=== PATIENT | female | born 1960 | race Caucasian/White ===

== ENCOUNTER 2019-08-06 05:13 | Emergency (ER) | payer OTHER ==
[~2019-08-06] VITALS: Ht 157.5 cm; Wt 79.4 kg
[2019-08-06 05:15] VITALS: BP 153/89
--- NOTE | 2019-08-06 05:18 | NUR ---
TO LOBBY A/W BED AMBULATORY
--- NOTE | 2019-08-06 06:11 | NUR ---
PT AMBULATED TO BED 9
--- NOTE | 2019-08-06 06:20 | NUR ---
PT C/O COUGH AND CONJESTION WITH WHITE FLEGM X 7 DAYS. PT STATES SOME CHEST AND BACK PAIN WELL. PT ALSO C/O LLQ PAIN. PT STATES N/V DENIES DIARRHEA. PT APPEARS TO BE IN NO DISTRESS. LUNGS CLEAR. DR. WILL HERNANDEZ OF , DOES NOT WANT EKG AT THIS TIME. PT NSR AT 97. PT O2 SAT 98%. SKIN IS PINK/WARM/DRY; AAOX4 WITH EVEN AND STEADY GAIT; LUNGS CLEAR BL; HR EVEN AND REGULAR; PT DENIES ANY FEVER, SOB AT THIS TIME; PATIENT STATES PAIN OF 7/10 AT THIS TIME; VSS; PATIENT POSITIONED FOR COMFORT; HOB ELEVATED; BEDRAILS UP X1; BED DOWN. PT DIALYSIS PT. GOES TO [facility]. LAST DIALYSIS WEDNESDAY.
--- NOTE | 2019-08-06 07:13 | NUR ---
RECEIVED REPORT FROM CO[facility] REYES FOR CONTINUITY OF CARE
[2019-08-06 07:35] VITALS: BP 153/90
--- NOTE | 2019-08-06 07:35 | NUR ---
Patient discharged with v/s stable. Written and verbal after care instructions given and explained. Patient alert, oriented and verbalized understanding of instructions. Ambulatory with steady gait. All questions addressed prior to discharge. ID band removed. Patient advised to follow up with PMD. Rx of LEVAQUINTESSALON given. Patient educated on indication of medication including possible reaction and side effects. Opportunity to ask questions provided and answered. D/C BY DR SOLIS
== END 2019-08-06 07:35 | disposition home or self-care (01) ==
LOC: MED 05:13
DX: J20.9 Acute bronchitis, unspecified (principal); Z98.890 Other specified postprocedural states
CPT/HCPCS: 71045; 99283

== ENCOUNTER 2021-02-12 06:45 | Day surgery (SDC) | payer OTHER ==
[~2021-02-12] VITALS: Ht 165.1 cm; Wt 74.8 kg
[2021-02-12] MEDS ORDERED: MIDAZOLAM 5 MG/5 ML VIAL ONE (07:51)
[2021-02-12] MEDS ORDERED: diphenhydrAMINE 50 MG/ML VIAL ONE (07:51)
[2021-02-12] MEDS ORDERED: fentaNYL citrate 0.05 MG/ML VIAL ONE (07:51)
[2021-02-12] MEDS ORDERED: LIDOCAINE 2% 100 MG/5 ML UJET TP ONE ×2 (07:51→08:10)
[2021-02-12] MEDS ORDERED: MIDAZOLAM 2 MG/2 ML VIAL IVP ONE ×2 (08:10→08:30)
[2021-02-12] MEDS ORDERED: fentaNYL citrate 0.05 MG/ML VIAL IVP ONE ×2 (08:10→08:30)
== END 2021-02-12 09:25 | disposition home or self-care (01) ==
LOC: MDS 06:45 → MMU 06:46 → MDS 09:25
PROVIDERS: ATTEND Internal Medicine Gastroenterology
DX: Z12.11 Encounter for screening for malignant neoplasm of colon (principal); K63.5 Polyp of colon; K57.30 Diverticulosis of large intestine without perforation or abscess without bleeding; Z87.19 Personal history of other diseases of the digestive system; I10 Essential (primary) hypertension; E78.5 Hyperlipidemia, unspecified; Z79.899 Other long term (current) drug therapy; Z86.010 Personal history of colon polyps; Z20.822 Contact with and (suspected) exposure to COVID-19
CPT/HCPCS: 45380; 88305; J2250; J3010; U0003; J1200